=== PATIENT | male | born 1980 | race American Indian/Alaskan Native ===

== ENCOUNTER 2019-07-07 18:03 | Emergency (ER) | payer SELFPAY ==
[2019-07-07 18:14] VITALS: BP 107/71
--- NOTE | 2019-07-07 19:00 | XRay Report ---
XR hand 3+V RT INDICATION / CLINICAL INFORMATION: Right hand pain after fall. COMPARISON: None available. FINDINGS: BONES/JOINT(S): There is a corner and dorsal subluxation of the ring finger PIP joint. There is no ap preciable associated fracture. No significant degenerative changes. SOFT TISSUES: No significant abnormality. ADDITIONAL FINDINGS: None. Signer Name: Alvarado Bustillo MD Signed: 07/07/2019 6:55 PM Workstation Name: [id number]
[2019-07-07] MEDS ORDERED: ACETAMINOPHEN 500 MG TAB PO ONE (19:10)
[2019-07-07] MEDS ORDERED: LIDOCAINE-MPF (1%) 10 MG/1 ML VIAL 5 ML INFILTRATI ONE (19:10)
[2019-07-07] MEDS ORDERED: IBUPROFEN 600 MG TAB PO ONE (19:10)
[2019-07-07] MEDS ORDERED: ONDANSETRON 4 MG ODT TAB PO ONE (19:25)
[2019-07-07] MEDS ORDERED: ceFAZolin 1 GM VIAL IM ONE (19:25)
[2019-07-07] MEDS ORDERED: HYDROcodone/ACETAMINOPHEN 7.5-325MG TAB PO ONE (19:25)
[2019-07-07] MEDS ORDERED: NEOMY 3.5 MG/BACIT 400 UNITS/POLY B 5000 UNITS/GM OINT PACKET TP ONE ×2 (20:46)
--- NOTE | 2019-07-07 21:28 | Emergency Department Report ---
ED Upper Extremity Inj HPI - General Chief Complaint: Extremity Injury, Upper Stated Complaint: R FINGER DISLOCATED Source: patient Mode of arrival: Ambulatory Limitations: No Limitations - History of Present Illness MD Complaint: Injury to:: right, finger (right ring finger pain, deformity and swelling) -: Sudden, hour(s) (3) Other Extremity Injury: Fingers: Right (right ring finger pain, swelling, deformity), Hand: Right (pain) Other Injuries: none Handedness: right Place: work Severity scale (0 -10): 8 Improves With: none Worsens With: movement of extremity Context: fall, direct blow, laceration Associated Symptoms: denies other symptoms. denies: weakness, numbness, neck pain, suspects foreign body, nausea/vomiting, heard/felt popping sensat, other - Related Data Previous Rx's Medication Instructions Recorded Last Taken Type HYDROcodone/APAP 5-325 [[place] 1 each PO Q6HR PRN #12 tablet 07/07/19 Unknown Rx 5/325] Ibuprofen [Motrin] 800 mg PO Q8HR PRN #24 tablet 07/07/19 Unknown Rx cephALEXin [Keflex] 500 mg PO Q8HR #30 cap 07/07/19 Unknown Rx Allergies Allergy/AdvReac Type Severity Reaction Status Date / Time No Known Allergies Allergy Verified 07/07/19 20:50 ED Review of Systems ROS: Stated complaint: R FINGER DISLOCATED Other details as noted in HPI Constitutional: denies: chills, fever Eyes: denies: eye pain, eye discharge, vision change ENT: denies: ear pain, throat pain Respiratory: denies: cough, shortness of breath, wheezing Cardiovascular: denies: chest pain, palpitations Endocrine: no symptoms reported Gastrointestinal: denies: abdominal pain, nausea, diarrhea Genitourinary: denies: urgency, dysuria Musculoskeletal: arthralgia (right ring finger pain with swelling and deformity, bleeding laceration). denies: back pain, joint swelling Skin: other (bleeding laceration on right ring finger). denies: rash, lesions Neurological: denies: headache, weakness, paresthesias Psychiatric: denies: anxiety, depression Hematological/Lymphatic: denies: easy bleeding, easy bruising ED Past Medical Hx - Past Medical History Previous Medical History?: No - Surgical History Past Surgical History?: No - Social History Smoking Status: Never Smoker Substance Use Type: None - Medications Home Medications: Home Medications Medication Instructions Recorded Confirmed Last Taken Type HYDROcodone/APAP 5-325 [[place] 1 each PO Q6HR PRN #12 tablet 07/07/19 Unknown Rx 5/325] Ibuprofen [Motrin] 800 mg PO Q8HR PRN #24 tablet 07/07/19 Unknown Rx cephALEXin [Keflex] 500 mg PO Q8HR #30 cap 07/07/19 Unknown Rx ED Physical Exam - General Limitations: No Limitations General appearance: alert, in no apparent distress - Head Head exam: Present: atraumatic, normocephalic, normal inspection - Eye Eye exam: Present: normal appearance, PERRL, EOMI Pupils: Present: normal accommodation - ENT ENT exam: Present: normal exam, normal orophraynx, mucous membranes moist, TM's normal bilaterally, normal external ear exam - Neck Neck exam: Present: normal inspection, full ROM - Respiratory Respiratory exam: Present: normal lung sounds bilaterally. Absent: respiratory distress, wheezes, rales, chest wall tenderness, accessory muscle use, decreased breath sounds - Cardiovascular Cardiovascular Exam: Present: regular rate, normal rhythm, normal heart sounds. Absent: systolic murmur, diastolic murmur, rubs, gallop - GI/Abdominal GI/Abdominal exam: Present: soft, normal bowel sounds. Absent: tenderness, hyperactive bowel sounds, hypoactive bowel sounds, organomegaly - Extremities Exam Extremities exam: Present: normal inspection, tenderness (right ring finger laceration with bleeding, and tenderness as well as deformity.), normal capillary refill, joint swelling (right ring finger swelling and tenderness). Absent: full ROM (Limited range of motion of the right ring finger due to pain) - Back Exam Back exam: Present: normal inspection, full ROM. Absent: tenderness, CVA tenderness (L), muscle spasm, paraspinal tenderness - Neurological Exam Neurological exam: Present: alert, oriented X3, CN II-XII intact, normal gait, reflexes normal - Psychiatric Psychiatric exam: Present: normal affect, normal mood - Skin Skin exam: Present: warm, dry, intact, normal color, other (bleeding right ring finger 2 cm laceration on the palmar side). Absent: rash ED Course Vital Signs 07/07/19 07/07/19 07/07/19 18:11 19:24 19:25 Temperature 98.4 F Pulse Rate 69 Respiratory 18 16 16 Rate Blood Pressure 107/71 O2 Sat by Pulse 100 Oximetry - Laceration /Wound Repair Right Finger Wound Location: upper extremity (right ring finger) Wound Length (cm): 2 Wound's Depth, Shape: superficial, irregular, flap Wound Explored: contaminated Irrigated w/ Saline (ccs): 50 Betadine Prep?: Yes Anesthesia: 1% Lidocaine Volume Anesthetic (ccs): 5 Wound Repaired With: sutures Suture Size/Type: 4:0, proline Number of Sutures: 5 Layer Closure?: No Sterile Dressing Applied?: Yes Progress: Patient tolerated the laceration and dislocation reduction procedures. The right ring finger dislocation was successfully manually reduced after medication of a local anesthetic with a digital block of the proximal right ring finger at the distal fourth MCP joint. The reduction was successfully performed as confirmed by the post reduction right hand x-ray. The right ring finger laceration was cleaned thoroughly and sutured per protocol and the patient tolerated the procedure well. Neosporin ointment was applied to the wound and the wound dressed appropriately. A finger splint was also applied to the right ring finger and the patient discharged home on pain medications and prophylactic antibiotics. - Orthopedic Fracture Reduction Fracture #1 Consent Obtained: verbal consent Time Out Performed: Yes Side: right Fracture Reduction Location: finger (right ring finger at the PIP joint) Analgesia: digital block Technique: direct manipulation Post Reduction X-rays Demonstrate: anatomical reduction Post-Reduction Neuro Exam: intact Post-Reduction Vascular Exam: intact Splint Applied: Yes (finger splint) Patient Tolerated Procedure: well ED Medical Decision Making - Radiology Data Radiology results: report reviewed, image reviewed Findings [facility] [address] [place] [address] XRay Report Signed Patient: JESI MOLINA MR#: [id number] : 1980 Acct:[id number] Age/Sex: 39 / M ADM Date: 07/07/19 Loc: ED Attending Dr: Ordering Physician: JACQUES VELASCO NP Date of Service: 07/07/19 Procedure(s): XR hand 3+V RT Accession Number(s): [id number] cc: JACQUES VELASCO NP Fluoro Time In Minutes: XR hand 3+V RT INDICATION / CLINICAL INFORMATION: Right hand pain after fall. COMPARISON: None available. FINDINGS: BONES/JOINT(S): There is a corner and dorsal subluxation of the ring finger PIP joint. There is no appreciable associated fracture. No significant degenerative changes. SOFT TISSUES: No significant abnormality. ADDITIONAL FINDINGS: None. Signer Name: Alvarado Bustillo MD Signed: 07/07/2019 6:55 PM Workstation Name: [id number] Transcribed By: NIC Dictated By: Alvarado Bustillo MD Electronically Authenticated By: Alvarado Bustillo MD Signed Date/Time: 07/07/191854 DD/ 54 TD/TT: Postreduction x-ray right hand confirms a successful reduction of the right ring finger dislocation at the PIP joint. There is however a small avulsion fracture on the right ring finger at the PIP joint. - Medical Decision Making This is a 39-year-old male who presented to the ED with right hand and right ring finger pain with right ring finger deformity and swelling and bleeding laceration after he tripped on stairs and fell down landing on his right hand 3 hours ago at work. In the ED: Patient is alert and oriented 3 and is not in distress. Patient was treated for pain in the ED and also received antibiotics Ancef 1 g intramuscular injection. The initial right hand x-ray shows a corner and dorsal subluxation of the ring finger PIP joint. There is no appreciable associated fracture. No significant degenerative changes. They right ring finger dislocation was reduced manually after application of digital block. The postreduction x-ray shows a successful reduction of the right ring finger dislocation. There is however a small avulsion fracture of the right ring finger at the PIP joint. The right ring finger laceration was cleaned thoroughly and sutured protocol. Patient tolerated these procedures well and the right ring finger was dressed appropriately and a finger splint applied to the right ring finger. The postreduction and post-splint application evaluation showed that the patient's right ring finger is neurovascularly intact. Patient was discharged home on pain medications and prophylactic oral antibiotics and was referred to the orthopedic surgeon preparation room worker Dr. Bach for further evaluation. Patient is advised to return to the ED immediately if symptoms get worse otherwise return to the ED or to his primary care physician in 12-14 days for suture removal. - Differential Diagnosis finger fracture; finger dislocation; finger laceration; finger sprain Critical care attestation.: If time is entered above; I have spent that time in minutes in the direct care of this critically ill patient, excluding procedure time. ED Disposition Clinical Impression: Dislocation of interphalangeal joint of right ring finger Qualifiers: Encounter type: initial encounter Qualified Code(s): S63.274A - Dislocation of unspecified interphalangeal joint of right ring finger, initial encounter Laceration of right ring finger w/o foreign body w/o damage to nail Qualifiers: Encounter type: initial encounter Qualified Code(s): S61.214A - Laceration without foreign body of right ring finger without damage to nail, initial encounter Fracture of phalanx of right ring finger Qualifiers: Encounter type: initial encounter Fracture type: closed Phalanx: proximal Fracture alignment: nondisplaced Qualified Code(s): S62.644A - Nondisplaced fr acture of proximal phalanx of right ring finger, initial encounter for closed fracture Disposition: TO HOME OR SELFCARE Is pt being admited?: No Does the pt Need Aspirin: No Condition: Stable Instructions: Finger Fracture (ED), Finger Dislocation (ED), Finger Laceration (ED) Additional Instructions: Take medications with food, drink plenty of fluids and follow-up with the orthopedic surgeon preparation room worker Dr. Bach in 2-3 days for reevaluation. Please contact Dr. Bach's office first thing in the morning to schedule a follow-up appointment. Otherwise follow-up with her primary care physician in 7-10 days for reevaluation. Return to ED immediately if symptoms get worse. Otherwise return to the ED or to primary care physician in 12-14 days for suture removal. Prescriptions: cephALEXin [Keflex] 500 mg PO Q8HR #30 cap Ibuprofen [Motrin] 800 mg PO Q8HR PRN #24 tablet PRN Reason: Pain , Severe (7-10) HYDROcodone/APAP 5-325 [[place] 5/325] 1 each PO Q6HR PRN #12 tablet PRN Reason: Pain Referrals: GER BACH MD [Staff Physician] - 2-3 Days Forms: Work/School Release Form(ED) Time of Disposition: 21:29 Print Language: [place]
--- NOTE | 2019-07-07 21:32 | XRay Report ---
RIGHT HAND 2 VIEWS 8:57 PM INDICATION: Post-reduction of right middle finger dislocation. COMPARISON: Earlier today. FINDINGS: There has been interval reduction of the ring finger PIP dislocation. There is a small chip-type frac ture along the volar aspect of the base of the middle phalanx of the ring finger. IMPRESSION: 1. Interval reduction of ring finger PIP dislocation. 2. Small chip fracture at the base of the ring finger middle phalanx. Signer Name: Shantanu Gerardo MD Signed: 07/07/2019 9:27 PM Workstation Name: [id number]
== END 2019-07-07 21:50 | disposition home or self-care (01) ==
LOC: ED 18:03
DX: S63.274A Dislocation of unspecified interphalangeal joint of right ring finger, initial encounter (principal); S61.214A Laceration without foreign body of right ring finger without damage to nail, initial encounter; S62.644A Nondisplaced fracture of proximal phalanx of right ring finger, initial encounter for closed fracture; X58.XXXA Exposure to other specified factors, initial encounter; Y93.89 Activity, other specified; Y92.89 Other specified places as the place of occurrence of the external cause; Y99.8 Other external cause status
CPT/HCPCS: 26770; 73120; 73130; 96372; 99283; J0690; A6250; Q0162

== ENCOUNTER 2021-03-27 02:36 | Emergency (ER) | payer OTHER ==
[2021-03-27] MEDS ORDERED: SODIUM CHLORIDE 0.9% 1000 ML 0 ML ONE (02:44)
[2021-03-27 03:48] VITALS: BP 127/80
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
== END 2021-03-27 04:55 | disposition home or self-care (01) ==
LOC: ED 02:36
DX: Z04.1 Encounter for examination and observation following transport accident (principal); V89.2XXA Person injured in unspecified motor-vehicle accident, traffic, initial encounter; Y93.89 Activity, other specified; Y92.89 Other specified places as the place of occurrence of the external cause; Y99.8 Other external cause status
CPT/HCPCS: 99282; J7030